=== PATIENT | male | born 1935 | race Caucasian/White ===

== ENCOUNTER 2016-11-05 12:51 | Emergency (ER) | payer MEDICARE ==
[2016-11-05] MEDS ORDERED: ACETAMINOPHEN 325 MG TAB PO ONE (13:09)
--- NOTE | 2016-11-05 13:17 | Emergency Department Record ---
History of Present Illness - General Chief Complaint: Fall Injury Stated Complaint: FALL Time Seen by Provider: 11/05/16 13:01 Source: Patient Mode of Arrival: Ambulatory Limitations: No limitations - History of Present Illness Initial Comments: The patient is here due to falling up in the [facility] area 20 minutes ago. He fell while slipping off a stool while trying to sit down and landed on his L side hitting his buttocks and L shoulder. He does not think he hit his head and had no LOC or WALKER. He does have mild neck pain but that has been a chronic issue. The patient has been ambulating normally and denies any hip, back, chest or arm pain. The patient has been on Eliquis for the last month due to having atrial clots and Afib. Onset/Timin -: Minutes(s) Fall From: Chair When Fall Occurred: Just prior to arrival Fall Witnessed: Yes, by bystander Place Fall Occurred: Other Loss of Consciousness: None Prolonged Down Time?: No Symptoms Prior to Fall: None Severity: Moderate Severity scale (1-10): 4 Quality: Aching - Amanda Coma Scale Eye Response: (4) Open spontaneously Motor Response: (6) Obeys commands Verbal Response: (5) Oriented Amanda Total: 15 - Related Data Home Medications Medication Instructions Recorded Confirmed Last Taken Atorvastatin Calcium [Lipitor] 20 mg PO QHS 06/17/14 11/05/16 1 Day Ago ~11/04/16 Hydrocodone/Acetaminophen 1 tab PO Q6H PRN 06/17/14 11/05/16 1 Day Ago [Hydrocodon-Acetaminoph 7.5-325] ~11/04/16 Metoprolol Succinate [Toprol Xl] 25 mg PO DAILY 06/17/14 11/05/16 1 Day Ago ~11/04/16 Alprazolam [Alprazolam] 0.5 mg PO QHS 11/25/14 11/05/16 1 Day Ago ~11/04/16 Apixaban [Eliquis] 5 mg PO BID 11/05/16 11/05/16 1 Day Ago ~11/04/16 Allergies Allergy/AdvReac Type Severity Reaction Status Date / Time adhesive Allergy Severe BLISTERS Verified 11/05/16 13:00 morphine AdvReac Intermediate NAUSEA AND Verified 11/05/16 13:00 VOMITING oxycodone HCl [From Percocet] AdvReac Intermediate NAUSEA AND Verified 11/05/16 13:00 VOMITING morphine AdvReac Intermediate NAUSEA AND Uncoded 11/05/16 13:00 VOMITING Travel Screening - Travel/Exposure Within Last 30 Days Have you traveled within the last 30 days?: No - Travel/Exposure Within Last Year Have you traveled outside the [place] in the last year?: No - Additonal Travel Details Have you been exposed to anyone with a communicable illness?: No - Travel Symptoms Symptom Screening: None Review of Systems Constitutional: Denies: Chills, Fever Eyes: Denies: Eye discharge ENT: Denies: Congestion Respiratory: Denies: Cough, Dyspnea Past Medical History - SOCIAL HISTORY Smoking Status: Former smoker Alcohol Use: None Drug Use: None - RESPIRATORY Hx Respiratory Disorders: No - CARDIOVASCULAR Hx Cardio Disorders: Yes Hx Abnormal EKG: Yes (A-fib) Hx Cardiac Cath: Yes Hx Edema: Yes (hands from arthritis) Hx Hypertension: Yes Hx Irregular Heartbeat: Yes (Afib) Hx Coronary Artery Disease: Yes (triple bypass) Hx Coronary Artery Bypass Graft: Yes Comment:: gym 3x week - NEURO Hx Neuro Disorders: Yes Hx Weakness: Yes (thumbs due to arthritis) - GI Hx GI Disorders: Yes Hx Reflux: Yes (OTC prilosec) Hx Irritable Bowel: Yes Hx Ulcer: Yes (hx of duodenal-50 yrs ago) Hx of Polyps: Yes - Hx Genitourinary Disorders: Yes Hx Bladder Problem: Yes (bladder 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) Hx Kidney Stones: Yes (none recent) - ENDOCRINE Hx Endocrine Disorders: No - MUSCULOSKELETAL Hx Musculoskeletal Disorders: Yes Hx Arthritis: Yes (thumbs & neck) - PSYCH Hx Psych Problems: No - HEMATOLOGY/ONCOLOGY Hx Hematology/Oncology Disorders: Yes Hx Anemia: Yes (occasionally in past) Hx Cancer: Yes (bladder) Hx Chemotherapy: No Hx Radiation Therapy: No Hx Clotting Problems: Yes (on coumadin A-FIB) Family Medical History Any Significant Family History?: Yes Hx Cancer: Father *Cancer Comment: lung CA Hx Dementia: Grandparents *Dementia Comment: great grandma Hx Depression: Brother/Sister *Depression Comment: brother Hx Heart Disease: Father, Mother Hx HTN: Mother Physical Exam - General General Appearance: Alert, Oriented x3, Cooperative, No acute distress - Head Head exam: Atraumatic, Normocephalic, Normal inspection - Eye Eye exam: Normal appearance, PERRL - Neck Neck exam: Normal inspection, Full ROM. negative: Tenderness - Respiratory Respiratory exam: Normal lung sounds bilaterally. negative: Chest wall tenderness, Respiratory distress - Cardiovascular Cardiovascular Exam: Normal heart sounds, Irregular rhythm. negative: Regular rate, Normal rhythm - GI/Abdominal GI/Abdominal exam: Soft, Normal bowel sounds. negative: Tenderness - Extremities Extremities exam: Normal inspection, Full ROM, Normal capillary refill. negative: Tenderness - Neurological Neurological exam: Alert, Normal gait. negative: Abnormal gait, Motor sensory deficit Course Vital Signs 11/05/16 12:55 Temperature 98.1 F Pulse Rate 68 Respiratory 18 Rate Blood Pressure 126/84 Pulse Ox 97 - Reevaluation(s) Reevaluation #1: The patient is doing very well at this time. He denies any new symptoms. I did explain to him the CT results and the need for F/U. 11/05/16 14:24 Medical Decision Making - Data Complexity MDM Data: X-Ray Ordered and/or Reviewed - Radiology Data Radiology results: Report reviewed (Head and Cervical CT: No acute changes relating to trauma.) Disposition Disposition: Discharge Clinical Impression: Cervical strain, acute Qualifiers: Encounter type: initial encounter Qualified Code(s): S16.1XXA - Strain of muscle, fascia and tendon at neck level, initial encounter Disposition: Home, Self-Care Condition: (1) Good Instructions: Cervical Strain (ED) Additional Instructions: Please use Tylenol for pain and use ice to your neck. Please see your PCP for any problems later this week and return to the ER for any increasing pain, head aching, nausea, vomiting, or confusion. Forms: Patient Portal Access Time of Disposition: 14:26 Quality - Quality Measures Quality Measures: N/A - Blood Pressure Screening Blood Pressure Classification: Pre-Hypertensive BP Reading Systolic Measurement: 126 Diastolic Measurement: 84 Screening for High Blood Pressure: < Pre-Hypertensive BP, F/U Documented > [ G8950] Pre-Hypertensive Follow-up Interventions: Follow-up with rescreen every year.
--- NOTE | 2016-11-06 11:24 | CT SCAN REPORT ---
EXAM: CT OF THE HEAD WITHOUT CONTRAST HISTORY: FALL WITH LEFT NECK AND SHOULDER PAIN. TECHNIQUE: Routine noncontrast CT examination of the head was obtained. Comparison: No prior imaging of the head available for comparison. Same day noncontrast CT of the cervical spine. FINDINGS: There is moderate dilatation of the subarachnoid spaces consistent with generalized atrophy. The ventricles are not enlarged. There are prominent perivascular spaces versus old lacunar infarcts scattered within each basal ganglia. Minor periventricular and subcortical white matter lucencies are scattered in each cerebral hemisphere, primarily in the frontal lobes. These are nonspecific, but likely areas of chronic small vessel ischemia. No other area of abnormally increased or decreased attenuation is noted throughout the brain substance. No abnormal extraaxial fluid collection nor skull fracture is seen. The distal right vertebral artery is likely hypoplastic with a dominant left vertebral artery visualized which is mildly atherosclerotic. There is atherosclerotic calcification of the distal internal carotid arteries as well. The visualized paranasal sinuses and mastoid air cells are clear. Post cataract surgery changes are noted bilaterally. The orbits as visualized are otherwise unremarkable. IMPRESSION: 1. NO CT EVIDENCE OF ACUTE MAJOR VESSEL INFARCT, INTRACRANIAL HEMORRHAGE, MASS NOR SKULL FRACTURE. 2. GENERALIZED ATROPHY. 3. MINOR WHITE MATTER LUCENCIES IN EACH CEREBRAL HEMISPHERE ARE NONSPECIFIC, BUT LIKELY AREAS OF CHRONIC SMALL VESSEL ISCHEMIA. PROMINENT PERIVASCULAR SPACES VERSUS OLD LACUNAR INFARCTS SCATTERED IN EACH BASAL GANGLIA. JOB NUMBER: [id number] [facility]
--- NOTE | 2016-11-06 12:32 | CT SCAN REPORT ---
EXAM: CT OF THE CERVICAL SPINE WITHOUT CONTRAST HISTORY: FALL WHILE BENDING DOWN TO SIT IN CHAIR ONE HOUR AGO. LEFT SIDED NECK PAIN EXTENDING INTO LEFT SHOULDER. TECHNIQUE: Thin collimation helical CT examination of the cervical spine was performed without intravenous contrast. Coronal and sagittal reformatted images were generated and reviewed. Comparison: No prior imaging of the cervical spine is available for comparison. Same day noncontrast CT of the head. FINDINGS: There is diffuse osteopenia. There is straightening of the normal cervical lordosis with slight reversal centered at the C5 level. There is minimal anterolisthesis of C7 on T1 likely relating to facet arthropathy. There is partial fusion of the C3 and C4 vertebra including partial anterior fusion. The vertebral bodies are otherwise normal in alignment and height. No acute fracture, destructive bone lesion, or prevertebral soft tissue swelling is seen. Multilevel degenerative disk/degenerative end plate changes are present most pronounced at the C5-C6 and C6-C7 levels where they are moderate in degree. Posterior disk bulging, end plate spurring and congenital canal narrowing appears to cause mild central canal stenosis at the C5-C6 and C6-C7 levels. Multilevel bilateral neural foraminal narrowing is present due to uncovertebral joint and facet arthropathy. Facet arthropathy is noted throughout the cervical spine most pronounced at the upper levels on the left where the changes are moderate to advanced. There is moderate atherosclerotic calcification of the carotid bifurcations. No cervical mass nor adenopathy. IMPRESSION: 1. DIFFUSE OSTEOPENIA MILDLY LIMITS EVALUATION. 2. NO ACUTE FRACTURE, SUSPICIOUS SUBLUXATION, OR PREVERTEBRAL SOFT TISSUE SWELLING. 3. MULTILEVEL DEGENERATIVE CHANGES, DISCUSSED IN DETAIL ABOVE ASSOCIATED WITH MILD CENTRAL CANAL STENOSIS AT THE C5-C6 AND C6-C7 LEVELS WELL MULTILEVEL BILATERAL NEURAL FORAMINAL NARROWING. 4. PARTIAL FUSION OF C3 AND C4. 5. 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 JOB NUMBER: [id number] [facility]
== END 2016-11-05 14:32 | disposition home or self-care (01) ==
LOC: ER 12:51
DX: S16.1XXA Strain of muscle, fascia and tendon at neck level, initial encounter (principal); M25.512 Pain in left shoulder; I10 Essential (primary) hypertension; I48.91 Unspecified atrial fibrillation; Z79.01 Long term (current) use of anticoagulants; Z87.891 Personal history of nicotine dependence; W07.XXXA Fall from chair, initial encounter; Y93.B9 Activity, other involving muscle strengthening exercises; Y92.238 Other place in hospital as the place of occurrence of the external cause
CPT/HCPCS: 70450; 72125; 99283

== ENCOUNTER 2017-06-12 12:28 | Emergency (ER) | payer MEDICARE ==
[2017-06-12] MEDS ORDERED: ASPIRIN 81 MG CHEWABLE TABLET PO ONE (12:34)
[2017-06-12] MEDS ORDERED: NITROGLYCERIN 0.4MG SL TABLET #25 BTL SL PRN (12:51)
--- NOTE | 2017-06-12 12:55 | Emergency Department Record ---
History of Present Illness - General Chief Complaint: Shortness of breath Stated Complaint: SHORT OF BREATH/CHEST DISCOMFORT Time Seen by Provider: 06/12/17 12:33 Source: Patient, RN notes reviewed Mode of Arrival: Wheelchair - History of Present Illness Initial Comments: patient has chest heaviness started at 10 am today93 hours ago) while working on his mail box. 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 Patient exercises daily 30 minutes per day on elitical. Patient currently on sotalol 80 mg twice a day Onset/Timin -: Days(s) Quality: Other Consistency: Constant Improves With: Nothing Worsens With: Nothing Associated Symptoms: Cough Treatments Prior to Arrival: None - Related Data Home Oxygen Therapy: No Home Medications Medication Instructions Recorded Confirmed Last Taken Alprazolam [Alprazolam] 0.5 mg PO ASDIR 06/12/17 06/12/17 Unknown Furosemide [Lasix] 20 mg PO DAILY 06/12/17 06/12/17 Unknown Isosorbide Mononitrate [Imdur] 20 mg PO DAILY 06/12/17 06/12/17 Unknown Potassium Chloride [Klor-Con] 20 meq PO DAILY 06/12/17 06/12/17 Unknown Sotalol HCl [Betapace] 80 mg PO BID 06/12/17 06/12/17 Unknown Allergies Allergy/AdvReac Type Severity Reaction Status Date / Time adhesive Allergy Severe BLISTERS Verified 11/05/16 13:00 morphine AdvReac Intermediate NAUSEA AND Verified 11/05/16 13:00 VOMITING oxycodone HCl [From Percocet] AdvReac Intermediate NAUSEA AND Verified 11/05/16 13:00 VOMITING morphine AdvReac Intermediate NAUSEA AND Uncoded 11/05/16 13:00 VOMITING Travel Screening - Travel/Exposure Within Last 30 Days Have you traveled within the last 30 days?: No Review of Systems Reviewed: No additional complaints except as noted below Constitutional: Reports: As per HPI. Denies: Chills, Fever, Malaise, Night sweats, Weakness, Weight change Eyes: Reports: As per HPI. Denies: Eye discharge, Eye pain, Photophobia, Vision change ENT: Reports: As per HPI. Denies: Congestion, Dental pain, Ear pain, Epistaxis , Hearing loss, Throat pain Respiratory: Reports: As per HPI. Denies: Cough, Dyspnea, Hemoptysis, Stridor, Wheezes Cardiovascular: Reports: As per HPI, Chest pain. Denies: Arrhythmia, Dyspnea on exertion, Edema, Murmurs, Orthopnea, Palpitations, Paroxysmal nocturnal dyspnea, Rheumatic Fever, Syncope Endocrine: Reports: As per HPI. Denies: Fatigue, Heat or cold intolerance, Polydipsia, Polyuria Gastrointestinal: Reports: As per HPI. Denies: Abdominal pain, Constipation, Diarrhea, Hematemesis, Hematochezia, Melena, Nausea, Vomiting Genitourinary: Reports: As per HPI. Denies: Dysuria, Frequency, Hematuria, Incontinence, Retention, Testicular pain, Testicular mass, Urgency Musculoskeletal: Reports: As per HPI. Denies: Arthralgia, Back pain, Gout, Joint swelling, Myalgia, Neck pain Skin: Reports: As per HPI. Denies: Bruising, Change in color, Change in hair/ nails, Lesions, Pruritus, Rash Neurological: Reports: As per HPI. Denies: Abnormal gait, Confusion, Headache, Numbness, Paresthesias, Seizure, Tingling, Tremors, Vertigo, Weakness Psychiatric: Reports: As per HPI. Denies: Anxiety, Auditory hallucinations, Depression, Homicidal thoughts, Suicidal thoughts, Visual hallucinations Hematological/Lymphatic: Reports: As per HPI. Denies: Anemia, Blood Clots, Easy bleeding, Easy bruising, Swollen glands Past Medical History - SOCIAL HISTORY Smoking Status: Former smoker Alcohol Use: None Drug Use: None - RESPIRATORY Hx Respiratory Disorders: No - CARDIOVASCULAR Hx Cardio Disorders: Yes Hx Abnormal EKG: Yes (A-fib) Hx Cardiac Cath: Yes Hx Edema: Yes (hands from arthritis) Hx Hypertension: Yes Hx Irregular Heartbeat: Yes (Afib) Hx Coronary Artery Disease: Yes (triple bypass) Hx Coronary Artery Bypass Graft: Yes Comment:: gym 3x week - NEURO Hx Neuro Disorders: Yes Hx Weakness: Yes (thumbs due to arthritis) - GI Hx GI Disorders: Yes Hx Reflux: Yes (OTC prilosec) Hx Irritable Bowel: Yes Hx Ulcer: Yes (hx of duodenal-50 yrs ago) Hx of Polyps: Yes - Hx Genitourinary Disorders: Yes Hx Bladder Problem: Yes (bladder 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) Hx Kidney Stones: Yes (none recent) - ENDOCRINE Hx Endocrine Disorders: No - MUSCULOSKELETAL Hx Musculoskeletal Disorders: Yes Hx Arthritis: Yes (thumbs & neck) - PSYCH Hx Psych Problems: No - HEMATOLOGY/ONCOLOGY Hx Hematology/Oncology Disorders: Yes Hx Anemia: Yes (occasionally in past) Hx Cancer: Yes (bladder) Hx Chemotherapy: No Hx Radiation Therapy: No Hx Clotting Problems: Yes (on coumadin A-FIB) Family Medical History Any Significant Family History?: Yes Hx Cancer: Father *Cancer Comment: lung CA Hx Dementia: Grandparents *Dementia Comment: great grandma Hx Depression: Brother/Sister *Depression Comment: brother Hx Heart Disease: Father, Mother Hx HTN: Mother Physical Exam - General General Appearance: Alert, Oriented x3, Cooperative, Mild distress - Head Head exam: Normal inspection - Eye Eye exam: Normal appearance, PERRL Pupils: Normal accommodation - ENT ENT exam: Normal exam, Mucous membranes moist, Normal external ear exam, Normal orophraynx, TM's normal bilaterally Ear exam: Normal external inspection. negative: External canal tenderness Nasal Exam: Normal inspection. negative: Discharge, Sinus tenderness Mouth exam: Normal external inspection, Tongue normal Teeth exam: Normal inspection. negative: Dental caries Throat exam: Normal inspection. negative: Tonsillar erythema, Tonsillar exudate - Neck Neck exam: Normal inspection, Full ROM. negative: Tenderness - Respiratory Respiratory exam: Normal lung sounds bilaterally. negative: Respiratory distress - Cardiovascular Cardiovascular Exam: Regular rate, Normal rhythm, Normal heart sounds - GI/Abdominal GI/Abdominal exam: Soft, Normal bowel sounds. negative: Tenderness - Rectal Rectal exam: Deferred - exam: Deferred - Extremities Extremities exam: Normal inspection, Full ROM, Normal capillary refill. negative: Tenderness - Back Back exam: Reports: Normal inspection, Full ROM. Denies: Muscle spasm, Rash noted, Tenderness - Neurological Neurological exam: Alert, Normal gait, Oriented X3, Reflexes normal - Psychiatric Psychiatric exam: Normal affect, Normal mood - Skin Skin exam: Dry, Intact, Normal color, Warm Course Vital Signs 06/12/17 12:32 Pulse Rate 45 L Respiratory 18 Rate Blood Pressure 135/85 Pulse Ox 97 - Reevaluation(s) Reevaluation #1: chest pain went away after one nitroglycerin and his bp went down to 98 /50 patient not dizzy 06/12/17 13:16 Reevaluation #2: discussed case with Dr. Juarez ([facility])and will transfer to [facility] for evaluation 06/12/17 13:41 Medical Decision Making - Data Complexity MDM Data: Labs Ordered and/or Reviewed, X-Ray Ordered and/or Reviewed (chest xray looks neg on the portable monitor,cardiomegaly), EKG Ordered and/or Reviewed (ekg sinus eugenia t wave inversions I,2,3 ,avf, V3,V4,V5,V6 similiar to 12/02/17) - Lab Data Result diagrams: 06/12/17 12:40 06/12/17 12:40 Disposition Clinical Impression: Anginal chest pain at rest Chest pain Qualifiers: Chest pain type: unspecified Qualified Code(s): R07.9 - Chest pain, unspecified Disposition: Acute Care Hospital Transfer Condition: (2) Stable Forms: Patient Portal Access Time of Disposition: 13:42 Quality - Quality Measures Quality Measures: N/A - Blood Pressure Screening Does Patient Have Any of the Following: No Blood Pressure Classification: Pre-Hypertensive BP Reading Systolic Measurement: 135 Diastolic Measurement: 85 Screening for High Blood Pressure: < Pre-Hypertensive BP, F/U Documented > [ G8950] Pre-Hypertensive Follow-up Interventions: Referral to alternative/primary care provider.
[2017-06-12 13:00] LABS: BASO % 0.3 % (0-6); EOS % 1.6 % (0-6); GRAN % 55.3 % (47-80); HEMOGLOBIN 13.6 gm/dl (14.0-18.0); LYMPH % 30.5 % (16-45); MEAN CELL VOLUME 92.8 fl (81-97); MEAN CORPUSCULAR HGB CONC 33.2 g/dl (32-36); MEAN PLATELET VOLUME 9.2 fl (7.4-10.4); MONO % 12.3 % (0-9); PLATELET COUNT 289 K/uL (130-400); RED BLOOD COUNT 4.42 M/uL (4.40-5.70); RED CELL DISTRIBUTION WIDTH 13.7 % (11.5-14.5)
[2017-06-12 13:01] LABS: MEAN CORPUSCULAR HEMOGLOBIN 30.7 pg (27-33)
[2017-06-12 13:12] LABS: BLOOD UREA NITROGEN 21 mg/dL (8-23); CREATININE 1.1 mg/dL (0.7-1.2); EST GLOMERULAR FILTRATION RATE > 60 mL/min
[2017-06-12 13:15] LABS: GLUCOSE,RANDOM 88 mg/dL (74-109)
[2017-06-12 13:23] LABS: CKMB 2.5 ng/mL (<6.73)
[2017-06-12 13:27] LABS: INR 1.2; PARTIAL THROMBOPLASTIN TIME 30.5 SECONDS (24.5-39.1); PROTHROMBIN TIME (PATIENT) 12.4 SECONDS (9.5-12.1)
[2017-06-12 13:32] LABS: TOTAL PROTEIN 7.1 g/dL (6.6-8.7)
[2017-06-12 13:37] LABS: ALBUMIN 3.8 g/dL (4.0-5.0); ALKALINE PHOSPHATASE 71 U/L (40-129); ALT/SGPT 41 U/L (<41); AST/SGOT 26 U/L (10.0-50.0); LIPASE 33 U/L (13-60)
[2017-06-12 13:40] LABS: BILIRUBIN,DIRECT < 0.2 mg/dL (0-0.3)
--- NOTE | 2017-06-13 11:06 | RADIOLOGY REPORT ---
EXAM: PORTABLE CHEST HISTORY: CHEST PAIN. TECHNIQUE: A single mobile upright view of the chest was obtained. Comparison: Two view chest radiographic examination dated 12/03/15. FINDINGS: Post median sternotomy changes redemonstrated. The heart is not enlarged and the pulmonary vasculature is nondilated. The lungs and pleural spaces are clear. Mild degenerative changes scattered throughout the visualized spine and shoulder girdles. IMPRESSION: 1. POST MEDIAN STERNOTOMY. 2. NO EVIDENCE OF ACUTE CARDIOPULMONARY DISEASE. JOB [facility]BER: [id number] [facility]
== END 2017-06-12 15:54 | disposition short-term general hospital (02) ==
LOC: ER 12:28
DX: I20.8 Other forms of angina pectoris (principal); R07.89 Other chest pain; R05 Cough; R06.02 Shortness of breath; I48.91 Unspecified atrial fibrillation; I10 Essential (primary) hypertension; I25.10 Atherosclerotic heart disease of native coronary artery without angina pectoris; Z79.01 Long term (current) use of anticoagulants; Z95.1 Presence of aortocoronary bypass graft; Z87.891 Personal history of nicotine dependence
CPT/HCPCS: 71045; 80048; 80076; 82553; 83690; 84484; 85025; 85610; 85730; 93005; 93010; 99285

== ENCOUNTER 2018-04-07 08:21 | Day surgery (SDC) | payer MEDICARE ==
[2018-04-07] MEDS ORDERED: LIDOCAINE 2% MDV (20MG/ML) 20ML VIAL IV ONE (08:22)
[2018-04-07] MEDS ORDERED: PROPOFOL 10 MG/ML VIAL IV ONE (08:22)
[2018-04-07] MEDS ORDERED: EPHEDRINE SULFATE 50 MG/ML ML IV ONE (08:22)
--- NOTE | 2018-04-07 16:20 | Operative Note ---
DATE OF SURGERY: 04/07/2018 OPERATION: COLONOSCOPY to the cecum. INDICATION: Prior history of adenomatous polyps. The patient's last examination 5 years ago failed to demonstrate any polyps. He returns at this time for surveillance. ANESTHESIA: Intravenous sedation was administered by the department of anesthesiology and included Diprivan titrated to effect. PROCEDURE: Following informed consent from this alert individual including a discussion of the risks and benefits of the procedure and an opportunity for the patient to ask questions, the patient was in the left lateral decubitus position. A digital rectal examination was performed. No abnormalities were noted. Following this, the Olympus [id number] video colonoscope was inserted into the rectum without resistance. The rectal mucosa had a normal appearance with normal folds and distensibility. The colonoscope was advanced up through the colon to the level of the cecum without much difficulty. Throughout the bowel the mucosa appeared normal, the folds were normal, and the bowel was fairly well distensible. Scattered diverticula were seen in the sigmoid region. The cecum was defined by noting the appendiceal orifice and ileocecal valve. From the base of the cecum, the colonoscope was then slowly withdrawn. The colon preparation was good. Again, diverticulosis was noted in the sigmoid colon. No other changes were appreciated. No polyps were noted. Retroflexion in the rectum revealed internal hemorrhoids, moderate size. The instrument was straightened and withdrawn. The patient tolerated the procedure well and was returned to the recovery area in stable condition. IMPRESSION: 1. Moderate amount of sigmoid diverticulosis. 2. Internal hemorrhoids. 3. No polyps noted. RECOMMENDATIONS: The patient was advised to have recheck colonoscopy in 5 years' time or sooner should problems arise. Followup will otherwise be with Dr. Dominik Spring. As always, thank you for allowing me to participate in the care of your patient. CC: Cl Spring, DO [place]
== END 2018-04-07 10:20 | disposition home or self-care (01) ==
LOC: HOP 08:21
PROVIDERS: ATTEND Internal Medicine Gastroenterology
DX: Z12.11 Encounter for screening for malignant neoplasm of colon (principal); Z86.010 Personal history of colon polyps; K57.30 Diverticulosis of large intestine without perforation or abscess without bleeding; I48.91 Unspecified atrial fibrillation; I10 Essential (primary) hypertension; E78.00 Pure hypercholesterolemia, unspecified; R60.9 Edema, unspecified; I49.9 Cardiac arrhythmia, unspecified
CPT/HCPCS: 00812; G0105